=== PATIENT | male | born 1960 | race Caucasian/White ===

== ENCOUNTER 2017-06-15 07:46 | Day surgery (SDC) | payer OTHER ==
[~2017-06-15] VITALS: Ht 185.4 cm; Wt 77.2 kg
[2017-06-15] MEDS ORDERED: PROBIOTIC1 EAC1 (08:02)
[2017-06-15] MEDS ORDERED: NIAC250ER (08:02)
[2017-06-15] MEDS ORDERED: Vitamin B Comple1 EA (08:03)
[2017-06-15] MEDS ORDERED: Super Energy1 EACH (08:10)
== END 2017-06-15 10:10 | disposition home or self-care (01) ==
LOC: ORSCSDS 07:46
PROVIDERS: Internal Medicine Gastroenterology
PROC: 0DBM8ZX Excision of Descending Colon, Via Natural or Artificial Opening Endoscopic, Diagnostic (ICD-10-PCS; principal; 2017-06-15 09:00)
PROC: 0DBH8ZX Excision of Cecum, Via Natural or Artificial Opening Endoscopic, Diagnostic (ICD-10-PCS; principal; 2017-06-15 09:00)
DX: Z12.11 Encounter for screening for malignant neoplasm of colon (principal); D12.0 Benign neoplasm of cecum; K63.5 Polyp of colon; K57.30 Diverticulosis of large intestine without perforation or abscess without bleeding; Z83.71 Family history of colonic polyps
CPT/HCPCS: 88305; J0330; J1980; J2405; J7120

== ENCOUNTER 2022-11-26 13:25 | Day surgery (SDC) | payer OTHER ==
[~2022-11-26] VITALS: Ht 185.4 cm; Wt 70.1 kg
[~2022-11-26 13:25] MED LIST: NIAC250ER; PROBIOTIC1 EAC1; Super Energy1 EACH; Vitamin B Comple1 EA
[2022-11-26 15:40] VITALS: BP 123/74
--- NOTE | 2022-11-26 15:55 | NUR ---
11/26/22 1555 Tere Wellington IV REMOVED. CANNULA INTACT. SUJEY WELL. WNL
== END 2022-11-26 15:54 | disposition home or self-care (01) ==
LOC: ORSCSDS 13:25
PROVIDERS: Internal Medicine Gastroenterology
PROC: 0DBH8ZX Excision of Cecum, Via Natural or Artificial Opening Endoscopic, Diagnostic (ICD-10-PCS; principal; 2022-11-26 14:45)
DX: Z12.11 Encounter for screening for malignant neoplasm of colon (principal); Z86.010 Personal history of colon polyps; Z83.71 Family history of colonic polyps; D12.0 Benign neoplasm of cecum; K57.30 Diverticulosis of large intestine without perforation or abscess without bleeding
CPT/HCPCS: 88305; J0461; J2001; J2405; J2704; J7120; Q9968

== ENCOUNTER 2024-12-11 10:36 | Day surgery (SDC) | payer OTHER ==
[~2024-12-11] VITALS: Ht 185.4 cm; Wt 73.3 kg
[~2024-12-11 10:36] MED LIST changes: +Lidocaine 1%-Epineph 1:100000 20 ML MDV ONE
[2024-12-11] MEDS ORDERED: Tranexamic Acid 100 ML IV ONE (10:58)
[2024-12-11] MEDS ORDERED: CeFAZolin Sodium 2,000 MG VIAL ONE (10:59)
[2024-12-11] MEDS ORDERED: MULVITA PO (11:14)
[2024-12-11] MEDS ORDERED: MEGA 3-6-9 SO1233 MG PO (11:14)
--- NOTE | 2024-12-11 12:41 | NUR ---
12/11/24 1241 Tere Wellington 11:50: PT LAYING IN BED WITH PARTNER SITTING AT BEDSIDE. DENIED ANY COMPLAINTS OR NEEDS AT THIS TIME. RN RXI PROVIDED EDUCATION REGARDING INCENTIVE SPIROMETER USAGE POST-OPERATIVELY AND PROVIDED PATIENT WITH EDUCATION REGARDING TODAY'S SURGERY, NERVE BLOCK, AND POST OP INTRUCTIONS. CALL LIGHT IS IN REACH. 11:59: PATIENT VISITING WITH PARTNER TAMIKO WHO IS STILL SITTING AT BEDSIDE. PT ASKED TO HAVE HOB LOWERED SLIGHTLY SO THIS RN ASSISTED WITH POSITIONING HOB FOR COMFORT FOR PATIENT. DENIED ANY FURTHER NEEDS. CALL LIGHT REMAINED IN PLACE. THIS RN ADVISED PATIENT THAT DR DONIS IS STILL IN SURGERY WITH PREVIOUS CASE. 12:20: PT RESTING IN BED WITH EYES CLOSED UPON THIS RN ENTERING ROOM. PARTNER AT BEDSIDE WORKING ON LAPTOP. PT AROUSED EASILY. DENIED ANY NEEDS OR CONCERNS. CALL LIGHT REMAIN IN PLACE.
[2024-12-11] MEDS ORDERED: Midazolam HCl 1MG / ML 2ML Vial ONE (13:01)
[2024-12-11] MEDS ORDERED: FentaNYL Citrate 50 MCG/ML 2 ML Injection ONE (13:47)
[2024-12-11] MEDS ORDERED: Metoclopramide HCl 5MG / ML 2ML Vial ONE (13:47)
[2024-12-11] MEDS ORDERED: Rocuronium Bromide 10 MG/ML 5ML Injection IV ONE ×2 (13:47→14:04)
[2024-12-11] MEDS ORDERED: Ondansetron HCl 2 MG / ML 2ML Vial ONE (13:47)
[2024-12-11] MEDS ORDERED: Sugammadex Sodium 200 MG/2ML SDV (100 MG/ML) ONE (15:16)
[2024-12-11 15:48] VITALS: BP 146/85
--- NOTE | 2024-12-11 16:40 | NUR ---
12/11/24 Jordan Brown PT DISCHARGE TO HOME WITH RIDE, DISCHARGE INSTRUCTIONS GIVEN TO PATIENT AND FAMILY NO QUESTIONS VERBALIZED UNDERSTANDING. DRESSING IS CLEAN DRY AND INTACT WITH THE POLAR PACK PLACED ON TOP. EDCUATION PROVIDED REGARDING INCENTIVE SPIROMETRY, POLAR PACK, AND DRESSING CARE. IV REMOVED WITH NO CONCERNS DRESSED WITH COBAN AND GAUZE. PT FAMILY ACKNOWLEDGE THAT POST OPERATIVE PRESCRIPTIONS HAVE BEEN CALLED INTO PHARMACY. PT LEFT IN A WC WITH NO PAIN, BLOCK INTACT, AND NO NAUSEA
== END 2024-12-11 16:30 | disposition home or self-care (01) ==
LOC: ORSCSDS 10:36
PROVIDERS: Orthopaedic Surgery Sports Medicine
PROC: 0RNJ4ZZ Release Right Shoulder Joint, Percutaneous Endoscopic Approach (ICD-10-PCS; principal; 2024-12-11 12:00)
DX: M75.121 Complete rotator cuff tear or rupture of right shoulder, not specified as traumatic (principal)
CPT/HCPCS: C1713; J0166; J0690; J2250; J2405; J2704; J2765; J3010; J7120